=== PATIENT | male | born 1985 ===

== ENCOUNTER 2020-08-12 06:46 | Emergency (ER) | payer OTHER ==
[~2020-08-12] VITALS: Ht 170.2 cm; Wt 107.5 kg
[2020-08-12] MEDS ORDERED: MUPIROCIN1 G1 TOP (08:50)
== END 2020-08-12 09:13 | disposition home or self-care (01) ==
LOC: ER 06:46
DX: S60.811A Abrasion of right wrist, initial encounter (principal); W45.0XXA Nail entering through skin, initial encounter; Y93.89 Activity, other specified; Y92.018 Other place in single-family (private) house as the place of occurrence of the external cause; Y99.8 Other external cause status